=== PATIENT | male | born 1975 | race African-American/Black ===

== ENCOUNTER 2018-04-27 22:55 | Emergency (ER) | payer SELFPAY ==
[~2018-04-27] VITALS: Ht 180.3 cm; Wt 76.2 kg
[2018-04-27 22:59] VITALS: BP 113/68
[2018-04-27] MEDS ORDERED: LIDOCAINE 0.5% HCL 50 ML VIAL ONE (23:24)
[2018-04-27] MEDS ORDERED: AZITHROMYCIN 250 MG TABLET ONE (23:24)
[2018-04-27] MEDS ORDERED: CEFTRIAXONE 500 MG VIAL ONE (23:24)
[2018-04-27] MEDS ORDERED: AZITHROMYCIN 250 MG TABLET PO ONE (23:30)
[2018-04-27] MEDS ORDERED: CEFTRIAXONE 500 MG VIAL IM ONE (23:30)
== END 2018-04-27 23:31 | disposition home or self-care (01) ==
LOC: ER 22:57
DX: A64 Unspecified sexually transmitted disease (principal); F17.200 Nicotine dependence, unspecified, uncomplicated
CPT/HCPCS: 87491; 87591; 96372; 99283; 99406; A4606; J0696; J3490; Z7610

== ENCOUNTER 2022-06-05 02:47 | Emergency (ER) | payer SELFPAY ==
[~2022-06-05] VITALS: Ht 162.6 cm; Wt 73.9 kg
[2022-06-05 03:24] VITALS: BP 141/86
--- NOTE | 2022-06-05 03:29 | NUR ---
BIBS C/O SORETHROAT X1DAY W/ MUCUS. PT AWAKE A/OX3. TOLERATING R/A WELL WITH NO RESP DISTRESS OR SOB.
[2022-06-05] MEDS ORDERED: DEXAMETHASONE 4 MG TABLET ONE (03:47)
[2022-06-05] MEDS ORDERED: PENICILLIN G BENZATHINE 2.4 MMU/4 ML ML IM ONE ×2 (03:48→04:00)
--- NOTE | 2022-06-05 03:50 | NUR ---
Patient discharged to home in stable condition. Written and verbal after care instructions given. Patient verbalizes understanding of instruction. pt ambulatory with a steady gait
[2022-06-05] MEDS ORDERED: DEXAMETHASONE SOLN 5 MG/5 ML UDC PO ONE (04:00)
== END 2022-06-05 03:53 | disposition home or self-care (01) ==
LOC: ER 02:52
DX: J02.9 Acute pharyngitis, unspecified (principal)
CPT/HCPCS: 99283; 96372; J0558; J8540

== ENCOUNTER 2025-10-14 15:37 | Emergency (ER) | payer SELFPAY ==
[~2025-10-14] VITALS: Ht 180.3 cm; Wt 74.8 kg
[2025-10-14 15:47] VITALS: BP 139/91; TEMP 98.3
[2025-10-14] MEDS ORDERED: METH-649 PO (17:38)
[2025-10-14] MEDS ORDERED: IBUP-1490 PO (17:38)
[2025-10-14] MEDS ORDERED: ACET-2605 PO (17:38)
[2025-10-14] MEDS ORDERED: KETOROLAC TROMETHAMINE 15 MG/ML VIAL ONE (17:57)
[2025-10-14] MEDS ORDERED: METHOCARBAMOL (500MG) 500 MG TABLET ONE (17:57)
[2025-10-14] MEDS: KETOROLAC TROMETHAMINE 15 MG/ML VIAL IM ONE (18:02)
[2025-10-14] MEDS: METHOCARBAMOL (500MG) 500 MG TABLET PO ONE (18:02)
[2025-10-14 18:08] VITALS: O2SAT 99
== END 2025-10-14 18:08 | disposition home or self-care (01) ==
LOC: ER 15:38
DX: M54.50 Low back pain, unspecified (principal); M62.838 Other muscle spasm; R11.10 Vomiting, unspecified
CPT/HCPCS: 99283; 96372; J1885